=== PATIENT | female | born 2000 | race Caucasian/White ===

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

== ENCOUNTER 2021-05-07 09:55 | Emergency (ER) | payer BC ==
[~2021-05-07] VITALS: Ht 154.9 cm; Wt 65.9 kg
[2021-05-07 10:19] VITALS: BP 101/68
--- NOTE | 2021-05-07 12:25 | NUR ---
Pt is not in the department.
--- NOTE | 2021-05-07 13:43 | NUR ---
Pt not in the department.
== END 2021-05-07 12:05 | disposition left against medical advice (07) ==
LOC: ER 09:56
DX: R52 Pain, unspecified (principal); Z20.822 Contact with and (suspected) exposure to COVID-19; R43.8 Other disturbances of smell and taste
CPT/HCPCS: 87635; 99283; C9803

== ENCOUNTER 2021-05-25 13:14 | Emergency (ER) | payer BC ==
[~2021-05-25] VITALS: Ht 157.5 cm; Wt 72.2 kg
[2021-05-25 14:03] VITALS: BP 126/70
== END 2021-05-25 17:00 | disposition left against medical advice (07) ==
LOC: ER 13:16
DX: Z53.21 Procedure and treatment not carried out due to patient leaving prior to being seen by health care provider (principal)

== ENCOUNTER 2021-07-02 11:03 | Inpatient (IN) | payer BC, OTHER ==
[~2021-07-02] VITALS: Ht 157.5 cm; Wt 68.2 kg
[2021-07-02 12:31] LABS: BASOPHILS # (AUTO) 0.1 X10'3 (0-0.2); EOSINOPHILS # (AUTO) 0.1 X10'3 (0-0.9); EOSINOPHILS % (AUTO) 1.5 % (0-6); HEMATOCRIT 42.7 % (35.0-45.0); HEMOGLOBIN 14.4 g/dl (12.0-16.0); LYMPHOCYTES # (AUTO) 1.4 X10'3 (1.1-4.8); MEAN CORPUSCULAR HEMOGLOBIN 29.1 PG (27.0-31.0); MEAN CORPUSCULAR HGB CONC 33.7 g/dL (33.0-36.5); MEAN CORPUSCULAR VOLUME 86.4 FL (78-98); MEAN PLATELET VOLUME 9.4 FL (7.4-10.4); MONOCYTES # (AUTO) 0.4 X10'3 (0-0.9); NEUTROPHILS # (AUTO) 4.3 X10'3 (1.8-7.7); NEUTROPHILS % (AUTO) 68.5 % (42-75); PLATELET COUNT 231 X10'3 (140-440); RED BLOOD COUNT 4.94 X10'6 (4.20-5.60); RED CELL DISTRIBUTION WIDTH 12.8 % (11.5-14.5); WHITE BLOOD COUNT 6.3 X10'3 (4.5-11.0)
[2021-07-02 12:40] LABS: ALANINE AMINOTRANSFERASE 24 U/L (12-78); ALBUMIN/GLOBULIN RATIO 1.2 (1.1-1.5); ALKALINE PHOSPHATASE 89 IU/L (20-180); ANION GAP 12 (8-16); ASPARTATE AMINO TRANSFERASE 23 U/L (10-37); BILIRUBIN,TOTAL 0.2 MG/DL (0.1-1.0); BLOOD UREA NITROGEN 9 MG/DL (7-18); CALCIUM 9.5 MG/DL (8.5-10.1); CHLORIDE 106 MMOL/L (99-107); CREATININE 0.82 MG/DL (0.40-0.90); GLUCOSE 87 MG/DL (70-104); POTASSIUM 4.6 MMOL/L (3.5-5.1); SODIUM 142 MMOL/L (135-145); TOTAL CARBON DIOXIDE 23.7 MMOL/L (24-32); TOTAL PROTEIN 7.4 G/DL (6.4-8.2); eGFR 90 ML/MIN
[2021-07-02 13:20] LABS: CLARITY,URINE CLEAR (Clear); GLUCOSE, URINE NEGATIVE (Neg); KETONES,URINE NEGATIVE (Neg); LEUKOCYTE ESTERASE ,URINE NEGATIVE (Neg); NITRITES, URINE NEGATIVE (Neg); OCCULT BLOOD,URINE NEGATIVE (Neg); PH,URINE 5.5 (4.8-8.0); PROTEIN,URINE NEGATIVE (Neg); UROBILINOGEN,URINE 0.2 E.U/dL (0.2-1.0)
[2021-07-02 13:24] LABS: URINE AMPHETAMINE SCREEN NEGATIVE (Neg); URINE BARBITUATE SCREEN NEGATIVE (Neg); URINE BENZODIAZEPINES SCREEN NEGATIVE (Neg); URINE CANNABINOID SCREEN NEGATIVE (Neg); URINE COCAINE SCREEN NEGATIVE (Neg); URINE METHADONE SCREEN NEGATIVE (Neg); URINE OPIATE SCREEN NEGATIVE (Neg); URINE PHENCYCLIDINE SCREEN NEGATIVE (Neg)
[2021-07-02 13:32] LABS: COLOR,URINE STRAW (Yellow); UA COLLECTION TYPE CLN CATCH MIDSTREAM
[2021-07-02 13:46] LABS: URINE HCG NEGATIVE (NEG)
--- NOTE | 2021-07-02 15:51 | NUR ---
Tele neuro set up at bedside, pt cooperative
[2021-07-02] MEDS ORDERED: ondansetron 4mg rapidly disintigrating tab PO ONE (17:00)
--- NOTE | 2021-07-02 17:05 | NUR ---
MOM AT BEDSIDE, PT VERY COOPERATIVE
[2021-07-02] MEDS ORDERED: DULO-31 PO (17:17)
[2021-07-02] MEDS ORDERED: potassium Cl 20 mEq SR tablet PO PRN ×2 (17:55)
[2021-07-02] MEDS ORDERED: magnesium 2GM in 50ml NS 50 ML IV PRN (17:55)
[2021-07-02] MEDS ORDERED: potassium CL 10mEq/100ml bag 100 ML IV PRN (17:55)
[2021-07-02] MEDS ORDERED: ondansetron/PF 4mg/2ml inj IV PRN (17:55)
[2021-07-02] MEDS ORDERED: magnesium Cl slow-release 64mg tablet PO PRN (17:55)
[2021-07-02] MEDS ORDERED: PERFLUTREN PROTEIN-A MICROSPHR (Optison) 0.22 MG/ML 3ML VIAL IV ONE (17:55)
[2021-07-02] MEDS ORDERED: magnesium 4gm in 100ml NS 100 ML IV PRN (17:55)
[2021-07-02 18:44] LABS: MAGNESIUM 2.3 MG/DL (1.5-2.4)
[2021-07-02] MEDS: normal saline 1000ml 1,000 ML IV SCH (19:07)
--- NOTE | 2021-07-02 19:42 | NUR ---
MEDICATION GIVEN IN ct
[2021-07-02] MEDS: K and/or MAG REPLACEMENT MC SCH (20:00)
[2021-07-02] MEDS: acetaminophen 325mg tablet PO PRN (20:31)
[2021-07-02 22:00] VITALS: BP 103/61
--- NOTE | 2021-07-02 22:00 | NUR ---
Patient transfer from ER to PCU in a stable condition, vital signs stable oriented to room call light within reach bed in lower position no signs of confusion will continue to monitor and report changes
[2021-07-03] MEDS: normal saline 1000ml 1,000 ML IV SCH ×3 (00:54→23:55)
[2021-07-03 02:00] VITALS: BP 108/65
[2021-07-03] MEDS: acetaminophen 325mg tablet PO PRN ×2 (03:46→23:12)
[2021-07-03 06:00] VITALS: BP 115/64
[2021-07-03 06:12] LABS: BASOPHILS % (AUTO) 0.6 % (0-1); EOSINOPHILS # (AUTO) 0.1 X10'3 (0-0.9); EOSINOPHILS % (AUTO) 1.4 % (0-6); HEMATOCRIT 39.1 % (35.0-45.0); HEMOGLOBIN 13.1 g/dl (12.0-16.0); LYMPHOCYTES # (AUTO) 1.4 X10'3 (1.1-4.8); MEAN CORPUSCULAR HEMOGLOBIN 29.2 PG (27.0-31.0); MEAN CORPUSCULAR HGB CONC 33.6 g/dL (33.0-36.5); MEAN CORPUSCULAR VOLUME 86.8 FL (78-98); MEAN PLATELET VOLUME 8.8 FL (7.4-10.4); MONOCYTES # (AUTO) 0.3 X10'3 (0-0.9); MONOCYTES % (AUTO) 5.8 % (2-12); NEUTROPHILS # (AUTO) 3.9 X10'3 (1.8-7.7); NEUTROPHILS % (AUTO) 68.2 % (42-75); PLATELET COUNT 175 X10'3 (140-440); WHITE BLOOD COUNT 5.8 X10'3 (4.5-11.0)
[2021-07-03 06:24] LABS: ALBUMIN 3.2 G/DL (3.4-5.0); ANION GAP 10 (8-16); BLOOD UREA NITROGEN 11 MG/DL (7-18); BUN/CREATININE RATIO 13.1 (6.6-38.0); CALCIUM 8.3 MG/DL (8.5-10.1); CHLORIDE 110 MMOL/L (99-107); CHOL/HDL RATIO 3.6 (0.00-4.99); CHOLESTEROL 180 MG/DL (0-200); CREATININE 0.84 MG/DL (0.40-0.90); GLUCOSE 90 MG/DL (70-104); HDL CHOLESTEROL 50 MG/DL (35-60); LDL CHOLESTEROL 114 MG/DL (50-100); POTASSIUM 4.4 MMOL/L (3.5-5.1); SODIUM 144 MMOL/L (135-145); TOTAL CARBON DIOXIDE 24.3 MMOL/L (24-32); TRIGLYCERIDES 85 MG/DL (20-135); eGFR 87 ML/MIN
--- NOTE | 2021-07-03 06:35 | NUR ---
Problems reprioritized. Patient report given, questions answered & plan of care reviewed with Soniya CEVALLOS .
[2021-07-03] MEDS: K and/or MAG REPLACEMENT MC SCH ×2 (08:54→20:00)
[2021-07-03 11:00] VITALS: BP 116/79
--- NOTE | 2021-07-03 12:03 | NUR ---
pt is refusing NS. Is drinking a large amount of water.
[2021-07-03 15:00] VITALS: BP 123/71
--- NOTE | 2021-07-03 15:41 | NUR ---
Messaged Dr. Salamanca about delayed MRA PAGER ID: [phone] MESSAGE: [id number] Ronda Salamanca, I just spoke with MRI. The patient's MRA will not be done until the morning. They are putting her first on the schedule tomorrow. Thanks, Soniya RN, PCU ext [phone].
[2021-07-03 18:00] VITALS: BP 128/83
[2021-07-03 22:00] VITALS: BP 121/55
[2021-07-04 02:00] VITALS: BP 118/56
[2021-07-04 06:00] VITALS: BP 109/57
[2021-07-04 06:11] LABS: BASOPHILS % (AUTO) 0.7 % (0-1); EOSINOPHILS # (AUTO) 0.1 X10'3 (0-0.9); EOSINOPHILS % (AUTO) 2.7 % (0-6); HEMOGLOBIN 13.8 g/dl (12.0-16.0); LYMPHOCYTES # (AUTO) 1.4 X10'3 (1.1-4.8); LYMPHOCYTES % (AUTO) 24.8 % (21-51); MEAN CORPUSCULAR HEMOGLOBIN 29.4 PG (27.0-31.0); MEAN CORPUSCULAR HGB CONC 33.6 g/dL (33.0-36.5); MEAN CORPUSCULAR VOLUME 87.6 FL (78-98); MEAN PLATELET VOLUME 9.2 FL (7.4-10.4); MONOCYTES # (AUTO) 0.3 X10'3 (0-0.9); MONOCYTES % (AUTO) 6.3 % (2-12); NEUTROPHILS # (AUTO) 3.6 X10'3 (1.8-7.7); NEUTROPHILS % (AUTO) 65.5 % (42-75); PLATELET COUNT 182 X10'3 (140-440); RED BLOOD COUNT 4.68 X10'6 (4.20-5.60); WHITE BLOOD COUNT 5.5 X10'3 (4.5-11.0)
--- NOTE | 2021-07-04 06:30 | NUR ---
Patient in room PCU 3017. I have received report from Chantel Zacarias RN and had the opportunity to ask questions and assume patient care. Patient was resting during shift change, all needs met at this time.
[2021-07-04 06:38] LABS: ALBUMIN 3.5 G/DL (3.4-5.0); ANION GAP 13 (8-16); BLOOD UREA NITROGEN 10 MG/DL (7-18); BUN/CREATININE RATIO 11.5 (6.6-38.0); CALCIUM 9.3 MG/DL (8.5-10.1); CHLORIDE 106 MMOL/L (99-107); CREATININE 0.87 MG/DL (0.40-0.90); GLUCOSE 91 MG/DL (70-104); MAGNESIUM 2.1 MG/DL (1.5-2.4); POTASSIUM 4.3 MMOL/L (3.5-5.1); SODIUM 143 MMOL/L (135-145); TOTAL CARBON DIOXIDE 23.9 MMOL/L (24-32); eGFR 84 ML/MIN
--- NOTE | 2021-07-04 06:51 | NUR ---
Problems reprioritized. Patient report given, questions answered & plan of care reviewed with Divya CEVALLOS .
--- NOTE | 2021-07-04 07:54 | NUR ---
Page Sent PAGER ID: [phone] MESSAGE: Room 3017A: Krzysztof Robbins: Mom called in, stated patient takes Cymbalta 30mg at home. Can we add that to her medications? Patient hasn't had it since Friday. Divya [phone]
[2021-07-04] MEDS: K and/or MAG REPLACEMENT MC SCH (08:00)
--- NOTE | 2021-07-04 13:03 | NUR ---
patient is stable for discharge per MD. PIV removed with canula intact and Discharged telemetry. All belongings were gathered up and her mother walked her out to the car to go home.
== END 2021-07-04 12:58 | disposition home or self-care (01) | DRG 103 ==
LOC: ER 11:03 → ED HOLD 17:56 → PCU 3S 21:35
PROVIDERS: ADMIT Internal Medicine; ATTEND Internal Medicine
PROC: 4A10X4Z Monitoring of Central Nervous Electrical Activity, External Approach (ICD-10-PCS; principal; 2021-07-03)
DX: G43.109 Migraine with aura, not intractable, without status migrainosus (principal); G89.29 Other chronic pain; Z20.822 Contact with and (suspected) exposure to COVID-19; F41.8 Other specified anxiety disorders; R07.9 Chest pain, unspecified; Z79.899 Other long term (current) drug therapy
CPT/HCPCS: 36415; 70450; 70544; 70547; 70551; 71045; 80048; 80053; 80061; 80305; 81003; 81025; 82140; 82607; 83735; 84443; 85025; 87081; 87635; 93306; 95816; 99285; C9803; G0378; J2405; J7030